=== PATIENT | male | born 1950 | race Caucasian/White ===

== ENCOUNTER 2017-03-10 14:52 | Inpatient (IN) | payer SELFPAY ==
[~2017-03-10] VITALS: Ht 185.4 cm; Wt 100.9 kg
[~2017-03-10 14:52] MED LIST: ACETAMINOPHEN-1 EAC1 PO; AMARYL2 MG PO; BENICAR20 MG PO; BYSTOLIC10 MG PO; BYSTOLIC5 MG PO; LISINOPRIL5 MG PO; PLAVIX75 MG PO; PROTONIX40 MG PO; ROBITUSSIN AC,T10 ML PO; TAMIFLU75 MG PO; VICKS DAYQUIL-1 EACH PO; ZOLOFT100 M1 PO; Zoloft PO
[2017-03-10 16:12] LABS: EOSINOPHIL (%) 1.1 % (0-5); EOSINOPHIL COUNT 0.1 K/uL (0-0.3); HEMATOCRIT 44.7 % (38.0-50.0); IMMATURE GRANULOCYTE (%) 0.3 % (0.0-0.7); INSTRUMENT ABS NEUTROPHIL CT 4.1 K/uL; LYMPHOCYTE COUNT 1.7 K/uL (1.0-2.8); MCH 29.7 PG (29.0-34.0); MCHC 34.2 G/DL (30.0-36.0); MCV 86.8 FL (86-99); MEAN PLAT.VOLUME 10.2 uM^3 (9.0-12.4); MONOCYTE (%) 9.2 % (3-12); MONOCYTE COUNT 0.6 K/uL (0-0.8); NEUTROPHIL (%) 63.1 % (45-76); NEUTROPHIL COUNT 4.1 K/uL (1.8-6.4); PLATELET COUNT 157 K/uL (156-360); RBC DIS.WIDTH-CV 11.9 % (11.8-14.6); RBC DIS.WIDTH-SD 38.4 % (39-53); RED BLOOD COUNT 5.15 M/uL (4.00-5.50); WHITE BLOOD COUNT 6.5 K/uL (4.1-10.2)
[2017-03-10 16:17] LABS: PROTHROMBIN TIME 11.1 SEC (10.2-12.9)
[2017-03-10 16:20] LABS: CHLORIDE 105 mEq/L (99-109); POTASSIUM 3.7 mEq/L (3.7-5.4); PTT 27.4 SEC (25-37); SODIUM 136 mEq/L (136-147)
[2017-03-10 16:22] LABS: GLUCOSE 280 mg/dL (70-99)
[2017-03-10 16:23] LABS: ANION GAP 12 MEQ/L (2-14)
[2017-03-10 16:25] LABS: SERUM ETHYL ALCOHOL 124 mg/dL
[2017-03-10 16:26] LABS: GFR ESTIMATE (CALCULATED) > 59 mL/min/
[2017-03-10 16:27] LABS: UREA NITROGEN (BUN) 10 mg/dL (9-23)
[2017-03-10 16:32] LABS: TROP-I INTERPRETATION NEGATIVE; TROPONIN-I < 0.01 ng/mL (0.0-0.30)
[2017-03-10 18:54] LABS: Estimated Average Glucose 266 mg/dL (70-123); HEMOGLOBIN A1c (GLYCOHEMOGLOB) 10.9 % HGB (Below 5.7)
[2017-03-10 19:05] LABS: ADD MIUA? NO; BILIRUBIN NEGATIVE; BLOOD NEGATIVE; COLOR YELLOW ((YELLOW)); GLUCOSE (STRIP) >=500; KETONES 5; LEUKOCYTES NEGATIVE; NITRITE NEGATIVE; PROTEIN (STRIP) NEGATIVE; SPECIFIC GRAVITY 1.013 (1.000-1.030); UROBILINOGEN 0.2 MG/DL (0.2-1.0)
[2017-03-10 19:15] LABS: UCUL ADDED? NO
[2017-03-10] MEDS ORDERED: ALKA-SELTZER P1 EAC6 PO (20:26)
[2017-03-10 21:45] LABS: POINT-OF-CARE METER ID UU13113700
[2017-03-10 22:02] VITALS: BP 201/93
[2017-03-10 22:30] VITALS: BP 198/98
[2017-03-11] VITALS (7 sets, daily range): BP systolic 146–187; BP diastolic 70–94
[2017-03-11 05:53] LABS: MCH 30.5 PG (29.0-34.0); MCHC 34.1 G/DL (30.0-36.0); MCV 89.4 FL (86-99); MEAN PLAT.VOLUME 10.5 uM^3 (9.0-12.4); PLATELET COUNT 159 K/uL (156-360); RBC DIS.WIDTH-CV 11.9 % (11.8-14.6); RED BLOOD COUNT 4.92 M/uL (4.00-5.50); WHITE BLOOD COUNT 6.2 K/uL (4.1-10.2)
[2017-03-11 06:13] LABS: ANION GAP 7 MEQ/L (2-14); CHLORIDE 103 MEQ/L (99-109); GFR ESTIMATE (CALCULATED) > 59 mL/min/; GLUCOSE 205 mg/dL (70-99); HDL CHOLESTEROL 38 MG/DL (Desirable>=40); NON-HDL CHOLESTEROL 165 mg/dL (Desirable<160); POTASSIUM 3.9 MEQ/L (3.7-5.4); SAMPLE HEMOLYSIS CHECK 0; SAMPLE ICTERIC CHECK 0; SAMPLE LIPEMIA CHECK 0; SODIUM 139 MEQ/L (136-147); TOTAL CHOLESTEROL 203 mg/dL (Desirable<200); TRIGLYCERIDES 431 MG/DL (Normal: <150); UREA NITROGEN (BUN) 10 mg/dL (9-23)
[2017-03-11 21:53] LABS: POINT-OF-CARE METER ID UU13113831
[2017-03-12 07:15] VITALS: BP 164/79
[2017-03-12 08:59] LABS: POINT-OF-CARE METER ID UU13113700
[2017-03-12] MEDS ORDERED: ASPIRIN81 M2 PO (11:33)
[2017-03-12] MEDS ORDERED: ATORVASTATIN CA40 MG PO (11:33)
[2017-03-12] MEDS ORDERED: LISINOPRIL10 MG PO (11:33)
[2017-03-12] MEDS ORDERED: METFORMIN HCL500 MG PO (11:34)
[2017-03-12 11:42] VITALS: BP 143/79
[2017-03-12] MEDS ORDERED: HUMULIN N100 UNITS/ SC (11:44)
[2017-03-12] MEDS ORDERED: NOVOLIN,HU100 UNITS1 SC (11:45)
[2017-03-12 12:02] VITALS: BP 123/79; BP 145/75
[2017-03-12 12:18] LABS: POINT-OF-CARE METER ID UU13113700
== END 2017-03-12 16:26 | disposition home or self-care (01) | DRG 65 ==
LOC: EME → EDBD 14:52 → EDOF 19:51 → 5WEST 19:51 → ENRESERV 19:53 → 5WEST 21:25 → CANRESERV 03-11 13:37 → ENRESERV 03-11 13:37 → CANRESERV 03-12 09:24 → ENRESERV 03-12 09:24 → 5WEST 03-12 16:26
PROVIDERS: Emergency Medicine; Hospitalist
DX: I63.9 Cerebral infarction, unspecified (principal); I10 Essential (primary) hypertension; E11.65 Type 2 diabetes mellitus with hyperglycemia; K92.2 Gastrointestinal hemorrhage, unspecified; F32.9 Major depressive disorder, single episode, unspecified; R13.10 Dysphagia, unspecified; F10.129 Alcohol abuse with intoxication, unspecified; E78.00 Pure hypercholesterolemia, unspecified; R47.81 Slurred speech; Y90.6 Blood alcohol level of 120-199 mg/100 ml; I25.2 Old myocardial infarction; Z82.3 Family history of stroke; Z82.49 Family history of ischemic heart disease and other diseases of the circulatory system; Z79.899 Other long term (current) drug therapy; Z90.49 Acquired absence of other specified parts of digestive tract
CPT/HCPCS: 70450; 70551; 71020; 80048; 80061; 81003; 82948; 83036; 84484; 85025; 85027; 85610; 85730; 93005; 93306; 93880; 99281; 99285; G0378; G0480; G8987 GO CJ; G8988 CI; G8989 CJ; J1650; J1815; J2060